=== PATIENT | male | born 1985 | race Caucasian/White ===

== ENCOUNTER 2019-11-09 09:30 | Emergency (ER) | payer SELFPAY ==
[~2019-11-09] VITALS: Ht 190.5 cm; Wt 86.4 kg
[~2019-11-09 09:30] MED LIST: CIPRO 500MG TA500 MG PO; LORTAB 5/500 501 TAB PO; NO HOME MEDICATIONS
[2019-11-09 09:52] VITALS: BP 127/73
[2019-11-09] MEDS ORDERED: NORCO 325 MG-51 TAB PO (11:23)
[2019-11-09] MEDS ORDERED: FLEXERIL 1010 MG/TAB PO (11:24)
[2019-11-09] MEDS ORDERED: PREDNISONE10 MG PO (11:25)
[2019-11-09 11:35] VITALS: PULSE 54; TEMP 97.2
== END 2019-11-09 11:35 | disposition home or self-care (01) ==
LOC: COL.ER 09:30
DX: M54.32 Sciatica, left side (principal); F17.210 Nicotine dependence, cigarettes, uncomplicated; X50.0XXA Overexertion from strenuous movement or load, initial encounter
CPT/HCPCS: J7512

== ENCOUNTER 2019-12-24 05:07 | Emergency (ER) | payer SELFPAY ==
[~2019-12-24] VITALS: Ht 190.5 cm; Wt 84.1 kg
[~2019-12-24 05:07] MED LIST changes: +FLEXERIL 1010 MG/TAB PO; +NORCO 325 MG-51 TAB PO; +PREDNISONE10 MG PO
[2019-12-24 05:25] VITALS: TEMP 98.8
[2019-12-24] MEDS ORDERED: AMOXICILLIN 8751 TAB PO (07:14)
[2019-12-24 07:32] VITALS: BP 132/76; PULSE 66
== END 2019-12-24 07:32 | disposition home or self-care (01) ==
LOC: COL.ER 05:07
DX: K02.9 Dental caries, unspecified (principal)

== ENCOUNTER 2019-12-26 10:09 | Emergency (ER) | payer SELFPAY ==
[~2019-12-26] VITALS: Ht 190.5 cm; Wt 84.1 kg
[~2019-12-26 10:09] MED LIST changes: +AMOXICILLIN 8751 TAB PO
[2019-12-26 10:23] VITALS: BP 138/80; TEMP 99.8
[2019-12-26 12:34] VITALS: PULSE 79
== END 2019-12-26 12:35 | disposition home or self-care (01) ==
LOC: COL.ER 10:09
DX: K02.9 Dental caries, unspecified (principal)
CPT/HCPCS: J1100; J2543; Q9967

== ENCOUNTER 2020-10-13 05:23 | Emergency (ER) | payer OTHER ==
[~2020-10-13] VITALS: Ht 190.5 cm; Wt 86.4 kg
[2020-10-13 05:31] VITALS: BP 147/73; TEMP 98
[2020-10-13] MEDS ORDERED: FLEXERIL 1010 MG/TAB PO (06:35)
[2020-10-13] MEDS ORDERED: NAPRELAN375 MG PO (06:35)
[2020-10-13 06:54] VITALS: PULSE 65
== END 2020-10-13 06:54 | disposition home or self-care (01) ==
LOC: COL.ER 05:23
DX: M79.9 Soft tissue disorder, unspecified (principal); F17.210 Nicotine dependence, cigarettes, uncomplicated; V49.9XXA Car occupant (driver) (passenger) injured in unspecified traffic accident, initial encounter

== ENCOUNTER 2021-02-23 21:23 | Emergency (ER) | payer SELFPAY ==
[~2021-02-23] VITALS: Ht 190.5 cm; Wt 81.8 kg
[~2021-02-23 21:23] MED LIST changes: +NAPRELAN375 MG PO
[2021-02-23 21:33] VITALS: BP 141/80; PULSE 76; TEMP 98.1
[2021-02-23] MEDS ORDERED: NORCO 325 MG-51 TAB PO (22:21)
== END 2021-02-23 22:29 | disposition home or self-care (01) ==
LOC: COL.ER 21:23
DX: S60.222A Contusion of left hand, initial encounter (principal); S80.02XA Contusion of left knee, initial encounter; S80.01XA Contusion of right knee, initial encounter; S40.012A Contusion of left shoulder, initial encounter; S40.011A Contusion of right shoulder, initial encounter; S00.81XA Abrasion of other part of head, initial encounter; F17.210 Nicotine dependence, cigarettes, uncomplicated; V89.2XXA Person injured in unspecified motor-vehicle accident, traffic, initial encounter